=== PATIENT | female | born 1985 | race Caucasian/White ===

== ENCOUNTER 2021-01-22 07:39 | Emergency (ER) | payer SELFPAY ==
[~2021-01-22] VITALS: Ht 170.2 cm; Wt 81.7 kg
[2021-01-22] MEDS ORDERED: Cleocin HCl300 MG PO (08:12)
== END 2021-01-22 08:39 | disposition home or self-care (01) ==
LOC: ER 07:39
DX: K13.0 Diseases of lips (principal); Z88.0 Allergy status to penicillin
CPT/HCPCS: 99283; A9270

== ENCOUNTER 2021-01-29 17:33 | Emergency (ER) | payer OTHER ==
[~2021-01-29] VITALS: Ht 170.2 cm; Wt 81.7 kg
[~2021-01-29 17:33] MED LIST: Cleocin HCl300 MG PO
[2021-01-29] MEDS ORDERED: Norco 5-325 Ta1 EACH PO (18:21)
== END 2021-01-29 18:57 | disposition home or self-care (01) ==
LOC: ER 17:33
DX: S52.591A Other fractures of lower end of right radius, initial encounter for closed fracture (principal); Z87.891 Personal history of nicotine dependence; W01.0XXA Fall on same level from slipping, tripping and stumbling without subsequent striking against object, initial encounter
CPT/HCPCS: 29105; 73110; 99283-25; A9270

== ENCOUNTER 2022-02-15 16:27 | Emergency (ER) | payer BC ==
[~2022-02-15] VITALS: Ht 170.2 cm; Wt 81.7 kg
[~2022-02-15 16:27] MED LIST changes: +Norco 5-325 Ta1 EACH PO
== END 2022-02-15 18:37 | disposition home or self-care (01) ==
LOC: ER 16:27
DX: S60.221A Contusion of right hand, initial encounter (principal); W22.8XXA Striking against or struck by other objects, initial encounter; Z88.0 Allergy status to penicillin; F17.290 Nicotine dependence, other tobacco product, uncomplicated
CPT/HCPCS: 73130

== ENCOUNTER 2022-11-23 08:08 | Emergency (ER) | payer BC ==
[~2022-11-23] VITALS: Ht 170.2 cm; Wt 83.0 kg
[2022-11-23 08:54] LABS: BASOPHILS ABSOLUTE AUTO 0.08 K/mm3 (0.00-0.23); BASOPHILS PERCENT AUTO 1 % (0-2); EOSINOPHILS ABSOLUTE AUTO 0.13 K/mm3 (0.00-0.68); EOSINOPHILS PERCENT AUTO 2 % (0-6); Hematocrit 43.2 % (33.0-51.0); Hemoglobin 14.4 g/dL (11.5-16.0); IMMATURE GRAN PERCENT AUTO 0 % (0-1); LYMPHOCYTES ABSOLUTE AUTO 1.79 K/mm3 (0.84-5.20); LYMPHOCYTES PERCENT AUTO 29 % (21-46); MONOCYTES ABSOLUTE AUTO 0.52 K/mm3 (0.16-1.47); MONOCYTES PERCENT AUTO 9 % (4-13); Mean Corpuscular HGB 32.1 pg (26.0-34.0); Mean Corpuscular HGB Conc 33.3 g/dL (31.5-36.5); Mean Corpuscular Volume 96 fL (80-100); Mean Platelet Volume 10.5 fL (9.1-12.4); NEUTROPHILS ABSOLUTE AUTO 3.59 K/mm3 (1.96-9.15); NEUTROPHILS PERCENT AUTO 59 % (41-73); Platelet Count 245 K/mm3 (150-400); RDW Coefficient Variation 12.2 % (11.7-14.2); RDW Standard Deviation 43.2 fL (35.1-46.3); Red Blood Cell Count 4.48 M/mm3 (3.80-5.20); White Blood Cell Count 6.11 K/mm3 (4.00-11.30)
[2022-11-23 09:34] LABS: Albumin, Blood 3.6 g/dL (3.4-5.0); Bilirubin, Total 0.3 mg/dL (0.1-1.0); Bun/Creatinine Ratio 16.2 (12.0-20.0); Calcium, Blood 8.6 mg/dL (8.5-10.1); Creatinine, Blood 0.8 mg/dL (0.40-1.00); Globulin, Blood 3.5 g/dL (2.2-4.0); Potassium, Blood 4.1 mmol/L (3.5-5.5); Total Protein, Blood 7.1 g/dL (6.4-8.2)
[2022-11-23 12:10] VITALS: BP 122/63
== END 2022-11-23 13:11 | disposition home or self-care (01) ==
LOC: ER 08:08
PROVIDERS: Emergency Medicine
DX: R07.2 Precordial pain (principal); Z88.0 Allergy status to penicillin; F17.290 Nicotine dependence, other tobacco product, uncomplicated
CPT/HCPCS: 71046; 80053; 84484; 85025; 93005; 93010; 99285-25